=== PATIENT | female | born 1995 | race Caucasian/White ===

== ENCOUNTER 2021-11-04 11:18 | Emergency (ER) | payer SELFPAY ==
[2021-11-04 11:26] VITALS: BP 124/69
[2021-11-04] MEDS ORDERED: AMOXICILLIN 250 MG CAPSULE PO STA (11:34)
--- NOTE | 2021-11-04 11:38 | ED Physician Documentation ---
PD HPI HEENT - Stated complaint Stated Complaint: TOOTH PX - Chief complaint Chief Complaint: Heent - History obtained from History obtained from: Patient - Additional information Additional information: The patient comes to the emergency department chief complaint of dental pain. She has been experiencing pain in the right maxillary area since breaking a filling and cracking a tooth. She states she grinds her teeth at night and thinks this is how it happened. She denies any facial swelling. No drainage into her mouth. No fevers or chills, and no difficulty swallowing. No tongue or throat swelling. Review of Systems Ten Systems: 10 systems reviewed and negative Constitutional: reports: Reviewed and negative Eyes: reports: Reviewed and negative Ears: reports: Reviewed and negative Nose: reports: Reviewed and negative Throat: reports: Dental pain / toothache Cardiac: reports: Reviewed and negative Respiratory: reports: Reviewed and negative GI: reports: Reviewed and negative : reports: Reviewed and negative Skin: reports: Reviewed and negative Musculoskeletal: reports: Reviewed and negative Neurologic: reports: Reviewed and negative Psychiatric: reports: Reviewed and negative Endocrine: reports: Reviewed and negative Immunocompromised: reports: Reviewed and negative PD PAST MEDICAL HISTORY - Present Medications Home Medications: Ambulatory Orders Medication Instructions Recorded Confirmed Amoxicillin 500 mg PO TID 7 Days #21 cap 11/04/21 Indomethacin [Indocin] 50 mg PO BIDWM PRN #20 cap 11/04/21 - Allergies Allergies/Adverse Reactions: Allergies Allergy/AdvReac Type Severity Reaction Status Date / Time bee venom protein (honey bee) Allergy Anaphylaxis Verified 11/04/21 11:24 mushroom Allergy Anaphylaxis Verified 11/04/21 11:24 shellfish derived Allergy Anaphylaxis Verified 11/04/21 11:24 PD ED PE NORMAL - Vitals Vital signs reviewed: Yes - General General: Alert and oriented X 3, No acute distress, Well developed/nourished - HEENT HEENT: Atraumatic, PERRL, EOMI, Moist mucous membranes, Other (Poor dentition. No gingival edema. No facial swelling. Patient is handling secretions. No tongue or throat swelling.) - Neck Neck: Supple, no meningeal sign, No adenopathy - Respiratory Respiratory: No respiratory distress - Derm Derm: Normal color, Warm and dry, No rash - Extremities Extremities: No deformity - Neuro Neuro: Alert and oriented X 3 - Psych Psych: Normal mood, Normal affect Results - Vitals Vitals: Vital Signs - 24 hr 11/04/21 11:25 Temperature 36.7 C Heart Rate 84 Respiratory 19 Rate Blood Pressure 124/69 O2 Saturation 100 Oxygen O2 Source Room air PD MEDICAL DECISION MAKING - ED course Complexity details: considered differential, d/w patient ED course: Patient was given a dose of amoxicillin in the emergency department. She stated she has addiction issues and would prefer an analgesic that it is a nonaddictive substance. The patient has already been taking ibuprofen and Tylenol at home. We will try her on indomethacin to see if this helps more than the ibuprofen has. Departure - Departure Disposition: 01 Home, Self Care Clinical Impression: Pain due to dental caries Condition: Stable Instructions: ED Tooth Pain Prescriptions: Amoxicillin 500 mg PO TID 7 Days #21 cap Indomethacin [Indocin] 50 mg PO BIDWM PRN #20 cap PRN Reason: pain
== END 2021-11-04 11:55 | disposition home or self-care (01) ==
LOC: ED 11:18
DX: K02.9 Dental caries, unspecified (principal)
CPT/HCPCS: 99282; 99283; A9270